=== PATIENT | female | born 1960 | race Caucasian/White ===

== ENCOUNTER 2021-10-17 11:45 | Outpatient (CLI) | payer MEDICARE ==
[2021-10-18 11:48] LABS: SARS-CoV-2 PCR by NAA Not Detected (NotDetected)
== END 2021-10-17 11:46 | disposition home or self-care (01) ==
LOC: LABBT 11:45
PROVIDERS: ATTEND Anesthesiology Pain Medicine
DX: Z01.812 Encounter for preprocedural laboratory examination (principal); Z20.822 Contact with and (suspected) exposure to COVID-19
CPT/HCPCS: U0003; U0005

== ENCOUNTER 2021-10-20 11:39 | Day surgery (SDC) | payer MEDICARE ==
[2021-10-17 14:12] VITALS: BMI 25.7
[2021-10-20] MEDS ORDERED: Ketamine 50 MG/ML (10ML VIAL) ONE (12:28)
[2021-10-20] MEDS ORDERED: Fentanyl 100 MCG/2 ML VIAL ONE ×2 (12:28→12:53)
[2021-10-20] MEDS ORDERED: Propofol 1,000 MG/100 ML VIAL IV ONE (12:36)
[2021-10-20] MEDS ORDERED: Bupivacaine PF 0.5% 30 ML VIAL ONE (12:46)
[2021-10-20] MEDS ORDERED: Lidocaine 2% PF 5 ML VIAL ONE (12:46)
[2021-10-20] MEDS ORDERED: EPINEPHrine 1 MG/ML AMP ONE (12:46)
[2021-10-20] MEDS ORDERED: Midazolam HCl 2 mg/2 ml Vial ONE (12:58)
[2021-10-20] MEDS ORDERED: Lidocaine 1% PF 5 ML VIAL ONE (13:33)
[2021-10-20] MEDS ORDERED: Glycopyrrolate 0.2 MG/ML 5 ML SYRINGE ONE (13:33)
[2021-10-20] MEDS ORDERED: HYDROcodone/Acetaminophen 5/325 mg Tablet ONE (14:56)
== END 2021-10-20 15:40 | disposition home or self-care (01) ==
LOC: SDC 11:39
PROVIDERS: ATTEND Anesthesiology Pain Medicine
PROC: 0JPT0MZ Removal of Stimulator Generator from Trunk Subcutaneous Tissue and Fascia, Open Approach (ICD-10-PCS; principal; 2021-10-20)
PROC: 00PU3MZ Removal of Neurostimulator Lead from Spinal Canal, Percutaneous Approach (ICD-10-PCS; 2021-10-20)
DX: T85.113A Breakdown (mechanical) of implanted electronic neurostimulator, generator, initial encounter (principal); M48.02 Spinal stenosis, cervical region; M50.120 Mid-cervical disc disorder, unspecified level; M96.1 Postlaminectomy syndrome, not elsewhere classified; M51.16 Intervertebral disc disorders with radiculopathy, lumbar region; G89.4 Chronic pain syndrome; J45.909 Unspecified asthma, uncomplicated; E78.5 Hyperlipidemia, unspecified; I10 Essential (primary) hypertension; Z79.899 Other long term (current) drug therapy
CPT/HCPCS: 76000; J0171; J2001; J2250; J2704; J3010; S0020